=== PATIENT | female | born 1965 | race African-American/Black ===

== ENCOUNTER 2016-05-28 22:21 | Emergency (ER) | payer MEDICAID, OTHER ==
[~2016-05-28] VITALS: Ht 172.7 cm; Wt 70.0 kg
[~2016-05-28 22:21] MED LIST: LORT5TAB PO; MEDR4PAK3 PO; METR-1 PO; PENI500T PO; PERC7.5T13 PO; Z.0.NO CURRENT MEDS
[2016-05-28 22:23] VITALS: BP 141/91; PULSE 96; RESP 18; TEMP 100.2; O2SAT 98
--- NOTE | 2016-05-28 23:29 | PD ---
HPI Chief Complaint: Cold / Flu Symptoms Time Seen by Provider: 23:19 Travel History International Travel<30 days: No Contact w/Intl Traveler<30days: No Traveled to known affect area: No History of Present Illness HPI 51-year-old female here for evaluation of cough, bilateral lateral lower back pain/flank pain, dyspnea. Symptoms have been going on for last 3 days. Cough was initially nonproductive, however upon arrival to the emergency department the patient reports cough is productive of greenish sputum. No hemoptysis. She has had subjective fevers and chills as well as generalized malaise. No urinary symptoms. No history of DVT or PE. No history of cardiac disease. PFSH Past Medical History Anxiety: Yes Depression: Yes Diminished Hearing: No Immunizations Current: Yes Schizophrenia: Yes Tetanus Vaccination: Unknown Influenza Vaccination: No ?: Not LMP: TUBAL : 6 Para: 6 Miscarriage: 1 : 1 Tubal Ligation: Yes Past Surgical History Surgical History: No Previous Surgery Social History Alcohol Use: No Tobacco Use: Yes (05/14 PPD) Substance Use: No Allergies-Medications (Allergen,Severity, Reaction): Coded Allergies: No Known Allergies (Verified , 05/28/16) Reported Meds & Prescriptions Reported Meds & Active Scripts Active No Active Prescriptions or Reported Medications Review of Systems Except as stated in HPI: all other systems reviewed are Neg Physical Exam Narrative GENERAL: Well-developed, well-nourished, coughing, no acute distress. SKIN: Warm and dry. No rash. HEAD: Atraumatic. Normocephalic. EYES: Pupils equal and round. No scleral icterus. No injection or drainage. ENT: Mucous membranes pink and moist. NECK: Trachea midline. No JVD. No nuchal rigidity. CARDIOVASCULAR: Regular rate and rhythm. No murmur appreciated. RESPIRATORY: No accessory muscle use. Clear to auscultation. Breath sounds equal bilaterally. GASTROINTESTINAL: Abdomen soft, non-tender, nondistended. MUSCULOSKELETAL: No obvious deformities. No clubbing. No cyanosis. No edema. No midline vertebral step-off or tenderness. Bilateral CVA tenderness. NEUROLOGICAL: Awake and alert. No obvious cranial nerve deficits. Motor grossly within normal limits. Normal speech. PSYCHIATRIC: Appropriate mood and affect; insight and judgment normal. Data Data Last Documented VS Vital Signs Date Time Temp Pulse Resp B/P Pulse Ox O2 Delivery O2 Flow Rate FiO2 1/16/17 23:48 Room Air 05/28/16 23:45 20 05/28/16 22:23 100.2 96 141/91 98 Orders Complete Blood Count With Diff (05/28/16 23:22) Comprehensive Metabolic Panel (05/28/16 23:22) Act Partial Throm Time (Ptt) (05/28/16 23:22) Prothrombin Time / Inr (Pt) (05/28/16 23:22) Ckmb (Isoenzyme) Profile (05/28/16 23:22) Troponin I (05/28/16 23:22) Urinalysis - C+S If Indicated (05/28/16 23:22) Influenzae A/B Antigen (05/28/16 23:22) Blood Culture (05/28/16 23:22) Iv Access Insert/Monitor (05/28/16 23:22) Electrocardiogram (05/28/16 23:22) Ecg Monitoring (05/28/16 23:22) Oximetry (05/28/16 23:22) Oxygen Administration (05/28/16 23:22) Chest, Single Ap (05/28/16 23:22) Sodium Chloride 0.9% Flush (Ns Flush) (05/28/16 23:30) Albuterol-Ipratropium Neb (Duoneb Neb) (05/28/16 23:30) Ed Urine Pregnancytest Poc (05/28/16 23:22) Ct Pulmonary Angiogram (05/29/16 23:22) Ct Abd/Pel W/O Iv Contrast (05/29/16 23:22) Iohexol 350 Inj (Omnipaque 350 Inj) (05/29/16 00:57) Labs Laboratory Tests Test 05/28/16 05/28/16 23:25 23:40 White Blood Count 6.8 TH/MM3 Red Blood Count 4.93 MIL/MM3 Hemoglobin 13.4 GM/DL Hematocrit 40.5 % Mean Corpuscular Volume 82.1 FL Mean Corpuscular Hemoglobin 27.2 PG Mean Corpuscular Hemoglobin 33.1 % Concent Red Cell Distribution Width 14.2 % Platelet Count 310 TH/MM3 Mean Platelet Volume 8.0 FL Neutrophils (%) (Auto) 85.9 % Lymphocytes (%) (Auto) 3.1 % Monocytes (%) (Auto) 8.1 % Eosinophils (%) (Auto) 2.8 % Basophils (%) (Auto) 0.1 % Neutrophils # (Auto) 5.8 TH/MM3 Lymphocytes # (Auto) 0.2 TH/MM3 Monocytes # (Auto) 0.5 TH/MM3 Eosinophils # (Auto) 0.2 TH/MM3 Basophils # (Auto) 0.0 TH/MM3 CBC Comment DIFF FINAL Differential Comment Prothrombin Time 10.8 SEC Prothromb Time International 1.0 RATIO Ratio Activated Partial 30.1 SEC Thromboplast Time Sodium Level 137 MEQ/L Potassium Level 4.2 MEQ/L Chloride Level 102 MEQ/L Carbon Dioxide Level 26.9 MEQ/L Anion Gap 8 MEQ/L Blood Urea Nitrogen 14 MG/DL Creatinine 1.19 MG/DL Estimat Glomerular Filtration 58 ML/MIN Rate Random Glucose 89 MG/DL Calcium Level 8.7 MG/DL Total Bilirubin 0.2 MG/DL Aspartate Amino Transf 11 U/L (AST/SGOT) Alanine Aminotransferase 17 U/L (ALT/SGPT) Alkaline Phosphatase 53 U/L Total Creatine Kinase 84 U/L Troponin I LESS THAN 0.02 NG/ML Total Protein 7.8 GM/DL Albumin 4.1 GM/DL Urine Color YELLOW Urine Turbidity CLEAR Urine pH 6.5 Urine Specific Welsh 1.016 Urine Protein NEG mg/dL Urine Glucose (UA) NEG mg/dL Urine Ketones NEG mg/dL Urine Occult Blood NEG Urine Nitrite NEG Urine Bilirubin NEG Urine Urobilinogen LESS THAN 2.0 MG/DL Urine Leukocyte Esterase NEG Urine RBC 6 /hpf Urine WBC 7 /hpf Urine Squamous Epithelial <1 /hpf Cells Urine Mucus FEW /lpf Microscopic Urinalysis Comment CULT NOT INDICATED MDM Medical Decision Making Medical Screen Exam Complete: Yes Emergency Medical Condition: Yes Medical Record Reviewed: Yes Interpretation(s) EKG: Sinus, rate 102, right axis deviation, possible right atrial enlargement, no ST segment elevations or signs of acute ischemia. Differential Diagnosis Influenza, pneumonia, PE, ACS, pyelonephritis, nephrolithiasis, musculoskeletal pain Narrative Course Vital signs show heart rate 96, blood pressure 141/91, pulse ox 98% on room air , oral temp of 100.2F. CBC shows WBC 6.8, hemoglobin 13.4, hematocrit 40.5, platelets 310, neutrophils 86%. CMP is remarkable for creatinine 1.19, GFR 58, otherwise unremarkable. Cardiac enzymes are negative. Influenza is negative. UA shows 6 rbc's, 7 wbc's, is not suggestive of UTI. Chest x-ray shows no acute disease. CT pulmonary angiogram: CONCLUSION: No evidence of pulmonary embolism. 7 mm right lung base nodule will need to be followed CT abdomen pelvis: CONCLUSION: No acute CT findings in the abdomen or pelvis. Patient was made aware of all findings and was provided a copy of her CT pulmonary angiogram and instructed to follow-up and have a repeat CT in 6 months. She has had a persistent cough while in the emergency department. Her back pain is not midline and is made worse with coughing. I believe it is musculoskeletal in nature. There are no significant neurologic findings on exam. She will be started on a Z-Richard. She is stable for discharge home with outpatient follow-up with a primary care physician this week. She was informed on when to return to the emergency department. She verbalizes understanding and agreement with plan. Diagnosis Primary Impression: Bronchitis Additional Impression: Lung nodule Referrals: Primary Care Physician 3 days Additional Instructions: Follow-up with a primary care physician this week. Return to the emergency department for worsening symptoms or any other concerns. Scripts Benzonatate (Tessalon Perles)100 Mg [id number] Mg PO TID PRN (COUGH) 7 Days Ref 0 Prov:Gerald Holm MD 05/29/16 Prednisone 50 Mg Tab50 Mg PO DAILY 5 Days Ref 0 Prov:Gerald Holm MD 05/29/16 Albuterol 18 GM Inh (Ventolin Hfa 18 GM Inh)90 Mcg/Act Aer2 Puff INH Q4-6H PRN ( SHORTNESS OF BREATH) #1 INHALER Ref 0 Prov:Gerald Holm MD 05/29/16 Azithromycin (Zithromax Z-Richard)250 Mg [id number] Mg PO DIRECTED #1 DSPK Ref 0 500 MG (2 tabs) day 1, then 1 tab days 2-5. Prov:Gerald Holm MD 05/29/16 Disposition: 01 DISCHARGE HOME Condition: Stable Gerald Holm MD May 28, 2016 23:29
[2016-05-28] MEDS ORDERED: SODIUM CHLORIDE 0.9% FLUSH 5 ML FLUSH IVF PRN (23:30)
[2016-05-28] MEDS: RESP: ALBUTEROL 2.5 MG/IPRATROPIUM 0.5 MG NEB (SCH) INH (23:42)
[2016-05-28 23:45] VITALS: RESP 20
--- NOTE | 2016-05-28 23:45 | RADRPT ---
EXAM DATE/TIME: 05/28/2016 23:34 [facility] COMPARISON: CHEST SINGLE AP, March 08, 2012, 16:42. INDICATIONS : Shortness of breath. MEDICAL HISTORY : None. SURGICAL HISTORY : None. ENCOUNTER: Initial ACUITY: 2 days PAIN SCORE: 0/10 LOCATION: Bilateral chest FINDINGS: A single view of the chest demonstrates the lungs to be symmetrically aerated without evidence of mas s, infiltrate or effusion. The cardiomediastinal contours are unremarkable. Osseous structures are intact. CONCLUSION: No acute disease. Octavio Wilkes MD on May 28, 2016 at 23:43 Board Certified Radiologist. This report was verified electronically.
[2016-05-28 23:48] LABS: AUTOMATED NEUTROPHIL # 5.8 TH/MM3 (1.8-7.7); BASOPHIL % 0.1 % (0.0-2.0); EOSINOPHIL # 0.2 TH/MM3 (0-0.4); EOSINOPHIL % 2.8 % (0.0-4.0); HEMATOCRIT 40.5 % (35.0-46.0); HEMO FLAGS DIFF FINAL; LYMPH % 3.1 % (9.0-44.0); LYMPHOCYTE # 0.2 TH/MM3 (1.0-4.8); MEAN CELL VOLUME 82.1 FL (80.0-100.0); MEAN CORPUSCULAR HEMOGLOBIN 27.2 PG (27.0-34.0); MEAN CORPUSCULAR HGB CONC 33.1 % (32.0-36.0); MONO % 8.1 % (0.0-8.0); NEUT % 85.9 % (16.0-70.0); PLATELET COUNT 310 TH/MM3 (150-450); RED BLOOD COUNT 4.93 MIL/MM3 (4.00-5.30); RED CELL DISTRIBUTION WIDTH 14.2 % (11.6-17.2); WHITE BLOOD COUNT 6.8 TH/MM3 (4.0-11.0)
[2016-05-28 23:58] LABS: APTT (PATIENT) 30.1 SEC (24.3-30.1); PROTHROMBIN TIME - PATIENT 10.8 SEC (9.8-11.6)
[2016-05-29 00:02] LABS: BLOOD, URINE NEG (NEG); COMMENT (UR) CULT NOT INDICATED; CULTURE IF INDICATED CULT NOT INDICATED; GLUCOSE,URINE NEG (NEG); KETONE, URINE NEG (NEG); MUCUS URINE FEW /lpf (OCC); NITRITE,URINE NEG (NEG); PH, URINE 6.5 (5.0-8.5); SQUAMOUS EPITHELIAL CELL URINE <1 /hpf (0-5); URINE COLOR YELLOW (YELLW/STRAW)
[2016-05-29 00:09] LABS: ANION GAP 8 MEQ/L (5-15); AST (GOT) 11 U/L (15-37); BICARBONATE 26.9 MEQ/L (21.0-32.0); BLOOD UREA NITROGEN 14 MG/DL (7-18); CHLORIDE 102 MEQ/L (98-107); GLOMERULAR FILTRATION RATE 58 ML/MIN (>89); POTASSIUM 4.2 MEQ/L (3.5-5.1); SODIUM (NA) 137 MEQ/L (136-145)
[2016-05-29 00:15] LABS: ALKALINE PHOSPHATASE 53 U/L (45-117); ALT (GPT) 17 U/L (10-53); CREATINE KINASE 84 U/L (26-192); TOTAL BILIRUBIN ADULT 0.2 MG/DL (0.2-1.0)
[2016-05-29] MEDS ORDERED: IOHEXOL 350 MG/ML 10 ML VIAL (for RAD DIAG) IV ONE (00:57)
--- NOTE | 2016-05-29 01:07 | RADRPT ---
EXAM DATE/TIME: 05/29/2016 00:39 [facility] COMPARISON: No previous studies available for comparison. INDICATIONS : Cough, congestion, and chest pain for two days. IV CONTRAST: 66 cc Omnipaque 350 (iohexol) IV RADIATION DOSE: 6.46 CTDIvol (mGy) MEDICAL HISTORY : None SURGICAL HISTORY : Tubal ligation. ENCOUNTER: Initial ACUITY: 2 days PAIN SCALE: 8/10 LOCATION: chest TECHNIQUE: Volumetric scanning of the chest was performed using a pulmonary embolism protocol MIP images were re constructed. Using automated exposure control and adjustment of the mA and/or kV according to patien t size, radiation dose was kept as low as reasonably achievable to obtain optimal diagnostic quality images. FINDINGS: PULMONARY ARTERIES: No filling defects are seen in the pulmonary arteries through the segmental level. LUNGS: There is a 7 mm nodular density in the posterolateral right lung base. Minimal dependent posterior at electasis. PLEURAE: There is no pleural thickening or pleural effusion. MEDIASTINUM: There is good visualization of the great vessels of the middle mediastinum. No evidence of mediastin al or hilar adenopathy/mass. MUSCULOSKELETAL: Within normal limits for patient age. MISCELLANEOUS: The visualized upper abdominal organs demonstrate no acute abnormality. CONCLUSION: No evidence of pulmonary embolism. 7 mm right lung base nodule will need to be followed Octavio Wilkes MD on May 29, 2016 at 1:00 Board Certified Radiologist. This report was verified electronically.
--- NOTE | 2016-05-29 01:51 | RADRPT ---
EXAM DATE/TIME: 05/29/2016 00:34 [facility] COMPARISON: No previous studies available for comparison. INDICATIONS : Low back pain for two days. ORAL CONTRAST: No oral contrast ingested. RADIATION DOSE: 13.75 CTDIvol (mGy) MEDICAL HISTORY : None SURGICAL HISTORY : Tubal ligation. ENCOUNTER: Initial ACUITY: 2 days PAIN SCALE: 8/10 LOCATION: abdomen TECHNIQUE: Volumetric scanning of the abdomen and pelvis was performed. Using automated exposure control and ad justment of the mA and/or kV according to patient size, radiation dose was kept as low as reasonably achievable to obtain optimal diagnostic quality images. FINDINGS: LOWER LUNGS: Minimal dependent atelectasis in the posterior lung bases. LIVER: Tiny probable cyst in the dome of the right lobe. No evidence of biliary ductal dilatation. SPLEEN: Normal size without lesion. PANCREAS: Within normal limits. KIDNEYS: No stones. 2.6 cm parapelvic cyst on the right. 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 No evidence of ureteral obstruction ADRENAL GLANDS: Within normal limits. VASCULAR: Patchy atherosclerotic calcification abdominal aorta. No aneurysm. BOWEL/MESENTERY: The stomach, small bowel, and colon demonstrate no acute abnormality. There is no free intraperitone al air or fluid. ABDOMINAL WALL: Within normal limits. RETROPERITONEUM: There is no lymphadenopathy. BLADDER: No wall thickening or mass. REPRODUCTIVE: Within normal limits. INGUINAL: There is no lymphadenopathy or hernia. MUSCULOSKELETAL: Within normal limits for patient age. CONCLUSION: No acute CT findings in the abdomen or pelvis. Octavio Wilkes MD on May 29, 2016 at 1:43 Board Certified Radiologist. This report was verified electronically.
[2016-05-29] MEDS ORDERED: BENZONATATE 100 MG CAP PO ONE (02:00)
[2016-05-29] MEDS ORDERED: ZITHTAB PO (02:00)
[2016-05-29] MEDS ORDERED: BENZ100 PO (02:00)
[2016-05-29] MEDS ORDERED: KETOROLAC TROMETHAMINE 30 MG/ML (IVP) VIAL IV PUSH ONE (02:00)
[2016-05-29] MEDS ORDERED: VENTAER INH (02:00)
[2016-05-29] MEDS ORDERED: PRED50 PO (02:00)
[2016-05-29] MEDS ORDERED: predniSONE 20 MG TAB PO ONE (02:00)
[2016-05-29] MEDS ORDERED: AZITHROMYCIN 250 MG TAB PO ONE (02:00)
--- NOTE | 2016-05-29 10:22 | EKG ---
Date Performed: 05/29/2016 Time Performed: 00:17:23 PTAGE: 51 years EKG: SINUS TACHYCARDIA LEFT ATRIAL ENLARGEMENT NONSPECIFIC T-WAVE ABNORMALITY Compared to the pr evious tracing left atrial abnormality is new and the AK interval is slightly shorter ABNORMAL ECG PREVIOUS TRACING : 05/03/2012 08.06 DOCTOR: Miller Wells Interpretating Date/Time 05/29/2016 10:20:57
--- NOTE | 2016-05-29 10:50 | EKG ---
Date Performed: 05/29/2016 Time Performed: 00:31:12 PTAGE: 51 years EKG: SINUS TACHYCARDIA POSSIBLE LEFT ATRIAL ENLARGEMENT BORDERLINE RIGHT AXIS DEVIATION NONSPECI FIC T-WAVE ABNORMALITY ABNORMAL RHYTHM ECG Compared to prior tracing no significant change PREVIOUS TRACING : 05/29/2016 00.17 DOCTOR: Miller Wells Interpretating Date/Time 05/29/2016 10:46:19
== END 2016-05-29 02:50 | disposition home or self-care (01) ==
LOC: NEPA 22:21
DX: J40 Bronchitis, not specified as acute or chronic (principal); R91.1 Solitary pulmonary nodule; F17.210 Nicotine dependence, cigarettes, uncomplicated; R00.0 Tachycardia, unspecified; R94.31 Abnormal electrocardiogram [ECG] [EKG]
CPT/HCPCS: 71010; 71275; 74176; 80053; 81001; 82550; 84484; 84703; 85025; 85610; 85730; 87040; 87804; 93005; 94640; 94664; 96374; 99284; J1885; J7512; Q9967